=== PATIENT | male | born 1980 | race Caucasian/White ===

== ENCOUNTER 2016-09-11 20:36 | Emergency (ER) | payer MEDICARE, OTHER ==
[~2016-09-11] VITALS: Ht 172.7 cm; Wt 100.0 kg
[2016-09-11] MEDS ORDERED: LIDOCAINE HCL/PF 1% 2 ML VIAL IM ONE (23:45)
[2016-09-11] MEDS ORDERED: CefTRIAXone SODIUM 1 GM/VIAL IM ONE (23:45)
[2016-09-11 23:51] VITALS: BP 144/72
== END 2016-09-11 23:52 | disposition home or self-care (01) ==
LOC: EMS 20:46
DX: L03.011 Cellulitis of right finger (principal)
CPT/HCPCS: 73130; 96372; 99284; J0696; J3490

== ENCOUNTER 2016-10-12 18:07 | Emergency (ER) | payer MEDICARE, OTHER ==
[~2016-10-12] VITALS: Ht 172.7 cm; Wt 102.5 kg
[2016-10-12] MEDS ORDERED: POVIDONE-IODINE 10% 15 ML SOLUTION UD TP ONE (19:45)
[2016-10-12 20:06] VITALS: BP 121/71
== END 2016-10-12 20:45 | disposition home or self-care (01) ==
LOC: EMS 18:09
DX: L03.011 Cellulitis of right finger (principal)
CPT/HCPCS: 10060; 99283

== ENCOUNTER 2016-10-30 02:19 | Emergency (ER) | payer MEDICARE, OTHER ==
[~2016-10-30] VITALS: Ht 172.7 cm; Wt 97.5 kg
[2016-10-30] MEDS ORDERED: IBUPROFEN 600 MG TABLET PO ONE (05:45)
[2016-10-30] MEDS ORDERED: PENICILLIN V POTASSIUM 500 MG TABLET PO ONE (05:45)
[2016-10-30 06:17] VITALS: BP 133/81
== END 2016-10-30 06:18 | disposition home or self-care (01) ==
LOC: EMS 02:20
DX: K02.9 Dental caries, unspecified (principal)
CPT/HCPCS: 99283

== ENCOUNTER 2016-11-04 23:54 | Emergency (ER) | payer MEDICARE, OTHER ==
[~2016-11-04] VITALS: Ht 172.7 cm; Wt 100.0 kg
[2016-11-05] MEDS ORDERED: HYDROCODONE/ACETAMINOPHEN 5-325 MG TABLET PO ONE (02:00)
[2016-11-05 02:11] VITALS: BP 118/89
== END 2016-11-05 02:12 | disposition home or self-care (01) ==
LOC: EMS 23:55
DX: K02.9 Dental caries, unspecified (principal)
CPT/HCPCS: 99283

== ENCOUNTER 2017-05-04 23:43 | Emergency (ER) | payer MEDICARE, OTHER ==
[~2017-05-04] VITALS: Ht 172.7 cm; Wt 109.1 kg
[2017-05-05] MEDS ORDERED: MORPHINE SULFATE 4 MG/ML SYRINGE IM ONE (00:30)
[2017-05-05] MEDS ORDERED: ONDANSETRON HCL 4 MG/2 ML VIAL IM ONE (00:30)
[2017-05-05] MEDS ORDERED: OxyCODONE HCL/ACETAMINOPHEN 5-325 MG TABLET PO ONE (02:45)
[2017-05-05 03:57] VITALS: BP 121/66
== END 2017-05-05 04:18 | disposition home or self-care (01) ==
LOC: EMS 23:44
DX: S62.621A Displaced fracture of middle phalanx of left index finger, initial encounter for closed fracture (principal); S83.91XA Sprain of unspecified site of right knee, initial encounter; S70.01XA Contusion of right hip, initial encounter; W20.8XXA Other cause of strike by thrown, projected or falling object, initial encounter; Y93.89 Activity, other specified; Y92.89 Other specified places as the place of occurrence of the external cause; Y99.8 Other external cause status
CPT/HCPCS: 29130; 29505; 73130; 73502; 73562; 96372; 99284; J2270; J2405